=== PATIENT | male | born 1970 | race African-American/Black ===

== ENCOUNTER 2016-06-27 06:58 | Outpatient (CLI) | payer OTHER ==
[2016-06-27 07:18] LABS: #Basophils 0.1 thou/uL (0.0-0.2); #Eosinphils 0.1 thou/uL (0.0-0.7); #Lymphocytes 1.6 thou/uL (1.20-3.40); #Monocytes 0.3 thou/uL (0.11-0.59); #Neutrophils 2.8 thou/uL (1.40-6.50); %Basophils 1.6 % (0.0-1.0); %Eosinophils 1.8 % (0.0-10.0); %Lymphocytes 32.4 % (21.0-51.0); %Monocytes 6.3 % (0.0-10.0); Hematocrit 45.5 % (42.0-52.0); Mean Platelet Volume 13.1 fL (7.4-10.4); Red Blood Cell (RBC) Count 5.52 mill/uL (4.70-6.10); White Blood Cell (WBC) Count 4.8 thou/uL (4.8-10.8)
[2016-06-27 07:27] LABS: Hemoglobin A1c 12.9 % (4.0-6.0)
[2016-06-27 07:33] LABS: ALT (SGPT) 40 U/L (0-55); AST (SGOT) 32 U/L (5-34); Alkaline Phosphatase 77 U/L (40-150); Anion Gap 19 mmol/L (10-20); BUN (Urea Nitrogen) 9 mg/dL (8.9-20.6); Bilirubin, Total 0.8 mg/dL (0.2-1.2); Calc. Creatinine Clearance 0 mL/min (70-130); Calcium 9.5 mg/dL (7.8-10.44); Carbon Dioxide 21 mmol/L (22-29); Chloride 101 mmol/L (98-107); Estimated GFR-MDRD 76; Globulin 4.5 g/dL (2.4-3.5); Protein, Total 8.7 g/dL (6.0-8.3)
[2016-06-27 08:00] LABS: LDL Cholesterol, Calculated 93 mg/dL
[2016-06-27 17:06] LABS: Microalbumin Urine Less than 1.0 mg/dL (0.5-50.0)
== END 2016-06-27 06:59 | disposition home or self-care (01) ==
LOC: NAV LAB 06:58
PROVIDERS: ATTEND Family Medicine
DX: E11.65 Type 2 diabetes mellitus with hyperglycemia (principal)
CPT/HCPCS: 36415; 80050; 80061; 82043; 83036

== ENCOUNTER 2019-10-13 09:40 | Outpatient (CLI) | payer OTHER ==
--- NOTE | 2019-10-13 09:58 | RAD ---
Exam: Chest one view HISTORY:Nodule in the anterior portion of the chest, near the right sternoclavicular joint Comparison: None FINDINGS: Cardiac silhouette: Normal Aorta: Unremarkable Pulmonary vessels: Normal Costophrenic angles: Clear LUNGS: No masses or consolidation. Pneumothorax: None Osseous abnormalities: None Marker: There is a small radio opaque marker in the region of concern. No radiographic evidence of an abnormality IMPRESSION: No acute cardiopulmonary process.
== END 2019-10-13 09:41 | disposition home or self-care (01) ==
LOC: NAV RAD 09:40
PROVIDERS: ATTEND Nurse Practitioner Adult Health
DX: R22.2 Localized swelling, mass and lump, trunk (principal)
CPT/HCPCS: 71045